=== PATIENT | female | born 1980 | race Caucasian/White ===

== ENCOUNTER → 2021-02-23 | Outpatient (CLI) | payer MEDICARE | LOC: MAMO 12:53 | DX: N63.20 Unspecified lump in the left breast, unspecified quadrant (principal); N64.4 Mastodynia | CPT/HCPCS: 76641-LT; 77066; G0279 ==

== ENCOUNTER → 2022-04-19 | Outpatient (CLI) | payer MEDICARE | LOC: KOH-I 16:00 | DX: E28.2 Polycystic ovarian syndrome (principal); R10.2 Pelvic and perineal pain | CPT/HCPCS: 76856 ==